=== PATIENT | female | born 1980 | race American Indian/Alaskan Native ===

== ENCOUNTER 2019-02-01 21:37 | Emergency (ER) | payer MEDICAID, OTHER ==
[2019-02-01 21:46] VITALS: BP 138/71
--- NOTE | 2019-02-01 21:46 | Emergency Department Report ---
Blank Doc - Documentation Documentation: This is a 38-year-old female that presents with left sided facial swelling with dental pain. This initial assessment/diagnostic orders/clinical plan/treatment(s) is/are subject to change based on patient's health status, clinical progression and re- assessment by fellow clinical providers in the ED. Further treatment and workup at subsequent clinical providers discretion. Patient/guardians urged not to elope from the ED as their condition may be serious if not clinically assessed and managed. Initial orders include: 1- Patient sent to [facility] for further evaluation and treatment
[2019-02-02] MEDS ORDERED: TRIMOX PO ONE (01:29)
[2019-02-02] MEDS ORDERED: ULTRAM PO ONE (01:29)
[2019-02-02] MEDS ORDERED: TRIMOX ONE (01:32)
[2019-02-02] MEDS ORDERED: ULTRAM ONE (01:32)
--- NOTE | 2019-02-02 02:09 | Emergency Department Report ---
ED ENT HPI - General Chief complaint: Dental/Oral Stated complaint: TOOTH PAIN SWELLING Time Seen by Provider: 02/01/19 21:45 Source: patient Mode of arrival: Ambulatory Limitations: No Limitations - History of Present Illness MD complaint: tooth pain Onset/Timin -: week(s) Location: tooth # Severity: moderate Severity scale (0 -10): 5 Quality: aching Consistency: constant Improves with: none Worsens with: none, eating Context-Epistaxis: recent surgery/procedure Associated Symptoms: toothache, rhinorrhea. denies: pain with swallowing, tinnitus, hearing loss, discharge from ear - Related Data Previous Rx's Medication Instructions Recorded Last Taken Type Amoxicillin [Trimox CAP] 500 mg PO Q8H #30 capsule 02/02/19 Unknown Rx Chlorhexidine Mouthwash [Peridex] 15 ml MM BID #1 bottle 02/02/19 Unknown Rx traMADol [Ultram] 50 mg PO Q6HR PRN #12 tablet 02/02/19 Unknown Rx Allergies Allergy/AdvReac Type Severity Reaction Status Date / Time No Known Allergies Allergy Verified 02/01/19 21:41 ED Dental HPI - General Chief complaint: Dental/Oral Stated complaint: TOOTH PAIN SWELLING Time Seen by Provider: 02/01/19 21:45 Source: patient Mode of arrival: Ambulatory Limitations: No Limitations - Related Data Previous Rx's Medication Instructions Recorded Last Taken Type Amoxicillin [Trimox CAP] 500 mg PO Q8H #30 capsule 02/02/19 Unknown Rx Chlorhexidine Mouthwash [Peridex] 15 ml MM BID #1 bottle 02/02/19 Unknown Rx traMADol [Ultram] 50 mg PO Q6HR PRN #12 tablet 02/02/19 Unknown Rx Allergies Allergy/AdvReac Type Severity Reaction Status Date / Time No Known Allergies Allergy Verified 02/01/19 21:41 ED Review of Systems ROS: Stated complaint: TOOTH PAIN SWELLING Other details as noted in HPI Constitutional: denies: chills, fever Eyes: denies: eye pain, eye discharge, vision change ENT: denies: ear pain, throat pain Respiratory: denies: cough, shortness of breath, wheezing Cardiovascular: denies: chest pain, palpitations Endocrine: no symptoms reported Gastrointestinal: as per HPI Genitourinary: denies: urgency, dysuria, discharge Musculoskeletal: denies: back pain, joint swelling, arthralgia Skin: denies: rash, lesions Neurological: denies: headache, weakness, paresthesias Psychiatric: denies: anxiety, depression Hematological/Lymphatic: denies: easy bleeding, easy bruising ED Past Medical Hx - Past Medical History Previous Medical History?: No - Surgical History Past Surgical History?: No - Social History Smoking Status: Never Smoker Substance Use Type: None - Medications Home Medications: Home Medications Medication Instructions Recorded Confirmed Last Taken Type Amoxicillin [Trimox CAP] 500 mg PO Q8H #30 capsule 02/02/19 Unknown Rx Chlorhexidine Mouthwash [Peridex] 15 ml MM BID #1 bottle 02/02/19 Unknown Rx traMADol [Ultram] 50 mg PO Q6HR PRN #12 tablet 02/02/19 Unknown Rx ED Physical Exam - General Limitations: No Limitations General appearance: alert, in no apparent distress - Head Head exam: Present: atraumatic, normocephalic, normal inspection - Eye Eye exam: Present: normal appearance, PERRL, EOMI, periorbital tenderness. Absent: conjunctival injection Pupils: Present: normal accommodation - ENT ENT exam: Present: normal exam, mucous membranes moist, TM's normal bilaterally, normal external ear exam - Expanded ENT Exam Expanded Ear exam: Present: normal external inspection Mouth exam: Present: normal external inspection, drooling, trismus, muffled voice, tongue normal Teeth exam: Present: normal inspection. Absent: fractured tooth #, dental tenderness # Throat exam: Positive: normal inspection, tonsillar erythema. Negative: tonsillomegaly, tonsillar exudate, R peritonsillar mass, L peritonsillar mass - Neck Neck exam: Present: normal inspection, full ROM. Absent: tenderness, meningismus, lymphadenopathy, thyromegaly - Respiratory Respiratory exam: Present: normal lung sounds bilaterally. Absent: respiratory distress, wheezes, rhonchi, chest wall tenderness - Cardiovascular Cardiovascular Exam: Present: regular rate, normal rhythm, normal heart sounds. Absent: systolic murmur, diastolic murmur, rubs, gallop, JVD - GI/Abdominal GI/Abdominal exam: Present: soft, distended, rebound, rigid, normal bowel sounds. Absent: mass, bruit, pulsatile mass - Rectal Rectal exam: Present: deferred - External exam: Present: normal external exam, erythema. Absent: swelling, ecchymosis Speculum exam: Absent: normal speculum exam - Extremities Exam Extremities exam: Present: normal inspection - Back Exam Back exam: Present: normal inspection, full ROM, tenderness, muscle spasm, paraspinal tenderness, rash noted. Absent: CVA tenderness (R), CVA tenderness (L) - Neurological Exam Neurological exam: Present: alert, oriented X3, CN II-XII intact, normal gait, reflexes normal. Absent: motor sensory deficit - Psychiatric Psychiatric exam: Present: normal affect, normal mood - Skin Skin exam: Present: warm, dry, intact, normal color. Absent: rash ED Course Vital Signs 02/01/19 21:45 Temperature 97.9 F Pulse Rate 89 Respiratory 18 Rate Blood Pressure 138/71 O2 Sat by Pulse 98 Oximetry ED Medical Decision Making - Lab Data 38 y/o female who presents for dental pain x 1 week ,pain locicalilzaed to number 21 mild gum swelling no gum thery gno abascess no cqof ou as - Medical Decision Making dental carries , amoxicillin, ultram, peridex follow up with Dentist in 2-3 days return to ed if symptoms worsen pt verbalized agreement and understanding of discharge plan, Critical care attestation.: If time is entered above; I have spent that time in minutes in the direct care of this critically ill patient, excluding procedure time. ED Disposition Clinical Impression: Infected dental carries Disposition: TO HOME OR SELFCARE Is pt being admited?: No Does the pt Need Aspirin: No Condition: Good Instructions: Dental Caries (ED) Prescriptions: Chlorhexidine Mouthwash [Peridex] 15 ml MM BID #1 bottle Amoxicillin [Trimox CAP] 500 mg PO Q8H #30 capsule traMADol [Ultram] 50 mg PO Q6HR PRN #12 tablet PRN Reason: Pain , Severe (7-10) Referrals: PRIMARY CARE, [Primary Care Provider] - 3-5 Days [facility] [Outside] - 3-5 Days Forms: Work/School Release Form(ED) Time of Disposition: 02:38
== END 2019-02-02 02:45 | disposition home or self-care (01) ==
LOC: ED 21:37
DX: K02.9 Dental caries, unspecified (principal)

== ENCOUNTER 2020-02-11 12:29 | Emergency (ER) | payer MEDICAID ==
[2020-02-11 12:38] VITALS: BP 132/85
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
== END 2020-02-11 13:02 | disposition home or self-care (01) ==
LOC: ED 12:29
DX: T21.22XA Burn of second degree of abdominal wall, initial encounter (principal); T25.221A Burn of second degree of right foot, initial encounter; T24.211A Burn of second degree of right thigh, initial encounter; Z79.899 Other long term (current) drug therapy; X12.XXXA Contact with other hot fluids, initial encounter; Y93.89 Activity, other specified; Y92.89 Other specified places as the place of occurrence of the external cause; Y99.8 Other external cause status
CPT/HCPCS: 99282